=== PATIENT | male | born 2000 | race Caucasian/White ===

== ENCOUNTER 2022-10-22 14:45 | Emergency (ER) | payer OTHER, SELFPAY ==
[2022-10-22 14:50] VITALS: BP 133/77; PULSE 117; RESP 16; TEMP 36.8; O2SAT 97
--- NOTE | 2022-10-22 14:52 | ECG_ITS ---
Measurements Intervals Pease Rate: 111 P: 28 DE: 124 QRS: 20 QRSD: 88 T: 5 QT: 314 QTc: 427 Interpretive Statements SINUS TACHYCARDIA BORDERLINE T WAVE ABNORMALITY- INFERIOR LEADS ABNORMAL ECG NO PREVIOUS ECG AVAILABLE FOR COMPARISON Electronically Signed On 10-22-2022 20:04:16 CDT by Keven Leblanc D.O.
[2022-10-22 15:24] LABS: Basophils Absolute Auto 0.1 K/mm3 (0.0-0.1); Basophils Percent Auto 0.6 % (0.2-1.2); Eosinophils Absolute Auto 0.1 K/mm3 (0-0.3); Eosinophils Percent Auto 0.5 % (0-4.4); Hematocrit 41.7 % (42.0-52.0); Hemoglobin 13.9 g/dL (14.0-18.0); Immature Granulocyte Absolute 0.09 K/mm3 (0.00-0.031); Immature Granulocyte Percent A 0.9 % (0-0.5); Lymphocytes Absolute Auto 1.18 K/mm3 (0.9-3.2); Mean Corpuscular HGB Conc 33.3 g/dl (32-36); Mean Corpuscular Hemoglobin 27.9 pg (26-34); Mean Corpuscular Volume 83.7 fl (80-100); Mean Platelet Volume 9.2 fl (7.4-10.4); Monocytes Absolute Auto 0.8 K/mm3 (0.1-0.6); Monocytes Percent Auto 8.2 % (2.6-8.5); Neutrophils Absolute Auto 7.6 K/mm3 (1.3-6.7); Neutrophils Percent Auto 77.8 % (45.5-73.1); Platelet Count Result 297 k/mm3 (150-375); Red Blood Count 4.98 M/mm3 (4.6-6.20); Red Cell Distribution Width 13.5 % (11.5-14.5); White Blood Count 9.8 K/mm3 (4.5-10.0)
[2022-10-22 15:34] LABS: Alanine Aminotransferase 23 U/L (6-50); Albumin Level 4.6 g/dL (3.5-5.1); Alkaline Phosphatase 86 U/L (38-126); Anion Gap 10 mmol/L (8-16); Aspartate Amino Transferase 29 U/L (17-59); Bilirubin,Total 0.5 mg/dL (0.2-1.3); Blood Urea Nitrogen 12 mg/dL (9-20); Calcium 9.6 mg/dL (8.4-10.2); Carbon Dioxide 26 mmol/L (22-30); Chloride 103 mmol/L (98-107); Estimated CRCL calculation 166 ml/min; Estimated Glomerular Filt Rate > 60; Glucose 103 mg/dL (65-110); Sodium 139 mmol/L (137-145)
[2022-10-22 16:18] VITALS: RESP 16
[2022-10-22] MEDS: SODIUM CHLORIDE 0.9% IV 1,000 ML 999 ML IV CONT (17:25)
--- NOTE | 2022-10-22 17:28 | ED.GENADULT ---
HPI - General Adult General Chief complaint: Unspecified Stated complaint: chest pain, nausea, dizzy Time Seen by Provider: 10/22/22 17:14 Source: patient Mode of arrival: EMS Limitations: no limitations History of Present Illness HPI narrative: This is a 22-year-old male that presents to the emergency department for possible dehydration. 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 He started to feel nauseous, lightheaded, and sweaty. He also had a brief episode of chest pain. Does report he tried to keep up with drinking water. He was concerned for being dehydrated so he called EMS for evaluation. Denies any current chest pain, shortness of breath, or vomiting. Related Data Home Medications Medication Instructions Recorded Confirmed atorvastatin 40 mg tablet (Lipitor) 40 mg PO DAILY 10/14/22 10/14/22 sulfasalazine 500 mg tablet 1 g PO BID 10/14/22 10/14/22 Allergies Allergy/AdvReac Type Severity Reaction Status Date / Time No Known Allergies Allergy Verified 10/22/22 16:16 Review of Systems Review of Systems: CONSTITUTIONAL: Denies fever CARDIOVASCULAR: Reports chest pain RESPIRATORY: Denies dyspnea. GASTROINTESTINAL: Reports nausea. Denies vomiting NEUROLOGIC: Denies numbness, or weakness. All systems reviewed & are unremarkable except as noted in HPI and below PMFSH Past Medical History Medical History Bloating BRBPR (bright red blood per rectum) LUQ pain Obesity Psoriatic arthritis Vapes nicotine containing substance Social History Social History Smoking status: Current every day smoker Exam Narrative: GENERAL: Well-appearing, well-nourished, and in no acute distress. HEAD: Normocephalic, atraumatic. EYES: EOMI. ENT: Mucous membranes moist. Oropharynx without tonsillar hypertrophy exudate or other lesions. CHEST: Clear to auscultation. No respiratory distress. No wheezes rales or rhonchi HEART: Regular rate and rhythm. No murmur heard. Normal peripheral pulses. EXTREMITIES: Normal range of motion. No edema. SKIN: Warm, dry, no rash. NEURO: No focal deficits. Alert and oriented x3. PSYCH: Normal mood and affect Course Course Emergency Course: Patient updated on workup and agrees with plan of care Vital Signs Vital signs: Vital Signs Temperature 98.2 F 10/22/22 14:50 Pulse Rate 117 H 10/22/22 14:50 Respiratory Rate 16 10/22/22 14:50 Blood Pressure 133/77 10/22/22 14:50 Pulse Oximetry 97 10/22/22 14:50 Oxygen Delivery Room Air 10/22/22 14:50 Temperature 98.2 F 10/22/22 14:50 Pulse Rate 117 H 10/22/22 14:50 Respiratory Rate 16 10/22/22 16:18 Blood Pressure 133/77 10/22/22 14:50 Pulse Oximetry 97 10/22/22 14:50 Oxygen Delivery Room Air 10/22/22 14:50 Medical Decision Making MDM Narrative Medical decision making narrative: Patient presents to the 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 Reports feeling nauseous, lightheaded and sweaty. Hydrated in the ED with relief. Tachycardic upon arrival, this normalized after hydration. CBC and metabolic panel without concerning findings. CK is not elevated. EKG without concerning changes. Ulceration patient was updated on workup. Reports feeling much better and is ready for discharge. Instructed to continue to hydrate orally and follow up with primary provider Differential Diagnosis Differential Diagnosis: Dehydration, electrolyte derangement, arrhythmia Vital Signs Vital Signs: Vital Signs Temperature 98.2 F 10/22/22 14:50 Pulse Rate 117 H 10/22/22 14:50 Respiratory Rate 16 10/22/22 14:50 Blood Pressure 133/77 10/22/22 14:50 Pulse Oximetry 97 10/22/22 14:50 Oxygen Delivery Room Air 10/22/22 14:50 Temperature 98.2 F 10/22/22 14:50 Pulse Rate 117 H 10/22/22 14:50 Respiratory Rate 16 10/22/22 16:18 Blood Pressure 133/77 10/22/22 14:50 Pulse Oximetry 97 10/22/22 14:50 Oxygen Deli
[2022-10-22 17:40] LABS: Creatine Kinase 137 U/L (55-170)
[2022-10-22 17:54] LABS: Troponin I < 0.012 ng/mL (0.000-0.034)
[2022-10-22 18:07] VITALS: BP 128/84; PULSE 90; RESP 18; O2SAT 98
== END 2022-10-22 18:10 | disposition home or self-care (01) ==
PROVIDERS: Preventive Medicine Aerospace Medicine; Emergency Provider Physician Assistant
DX: E86.0 Dehydration (principal); L40.50 Arthropathic psoriasis, unspecified; E66.9 Obesity, unspecified; Z68.31 Body mass index [BMI] 31.0-31.9, adult; F17.290 Nicotine dependence, other tobacco product, uncomplicated; R00.0 Tachycardia, unspecified; R94.31 Abnormal electrocardiogram [ECG] [EKG]
CPT/HCPCS: 36415; 80053; 82550; 84484; 85025; 93005; 96360; 99284; J7030

== ENCOUNTER 2022-12-06 02:38 | Day surgery (SDC) | payer OTHER, SELFPAY ==
[2022-11-22 13:13] VITALS: BMI 31.6
--- NOTE | 2022-12-03 15:44 | PM.HPGS ---
History of Present Illness History of Present Illness Consent: Risks, benefits, and alternatives have been discussed and questions answered. Patient agrees to proceed with procedure. Chief complaint: hemorrhage of anus and rectum Narrative: Murtaza Light is a 22 year old male referred to us because of blood in his stools. ?He Also states that the end of May he began experiencing stomach pains and abdominal bloating.? He states the stomach pain that he is experiencing is mainly in the left upper quadrant and describes it as sharp and very quick and happens a few times per week.? currently taking famotidine 40 mg daily. Review of Systems Review of Systems: All systems reviewed & are unremarkable except as noted in HPI and below PMFSH Past Medical History Medical History Anxiety Bloating BRBPR (bright red blood per rectum) GERD (gastroesophageal reflux disease) Hyperlipidemia LUQ pain Obesity Osteoarthritis Psoriatic arthritis Vapes nicotine containing substance Social History Social History Years smoked: 7 Smoking status: Former smoker Tobacco type: cigarettes and e-cigarettes/vaping Alcohol intake: current Drinks per week: 1 Substance use type: does not use Living arrangements: with family Spiritual care concerns: No Meds Home Medications and Allergies Home Medications Medication Instructions Recorded Confirmed Type atorvastatin 40 mg tablet (Lipitor) 40 mg PO DAILY 10/14/22 11/23/22 History famotidine 40 mg tablet 40 mg PO DAILY #30 tabs 10/14/22 11/23/22 Rx sulfasalazine 500 mg tablet 1 g PO BID 10/14/22 11/23/22 History clobetasol 0.05 % scalp solution 1 applic topical BID 11/23/22 11/23/22 History desonide 0.05 % lotion 1 applic topical BID 11/23/22 11/23/22 History Allergies Allergy/AdvReac Type Severity Reaction Status Date / Time No Known Allergies Allergy Verified 12/06/22 11:29 Exam Const: General: alert Orientation/consciousness: patient oriented x3 Resp: Auscultation: clear to auscultation bilaterally Cardio: Rhythm: regular rhythm GI: GI Palp: Yes Soft to palpation and No Tenderness to palpation present (GI) Neuro: General: patient oriented x3 Assessment and Plan Assessment and plan (1) BRBPR (bright red blood per rectum): Code(s): K62.5 - Hemorrhage of anus and rectum Status: Acute Assessment and Plan: Colonoscopy with possible biopsy or polypectomy or cautery or injection of substances. (2) LUQ pain: Code(s): R10.12 - Left upper quadrant pain Status: Acute Assessment and Plan: EGD with possible biopsy or dilatation or cautery.
--- NOTE | 2022-12-06 08:10 | P.PNAN_ITS ---
Anes - Initial Pre Proc Eval Procedure: Operation Date: 12/06/22 12:30 Proposed Procedures p Esophagogastroduodenoscopy & Colonoscopy - Hermes Kennedy MD Date/Time: 12/06/22 08:10 Surgeon: Hermes Kennedy MD Pre Op Diagnosis: hemorrhage of anus and rectum Patient Data Age: 22 Gender: M Height: 1.78 m Weight: 100 kg Allergies Allergy/AdvReac Type Severity Reaction Status Date / Time No Known Allergies Allergy Verified 12/06/22 11:29 Home Medications Medication Instructions Recorded Confirmed Type atorvastatin 40 mg tablet (Lipitor) 40 mg PO DAILY 10/14/22 11/23/22 History famotidine 40 mg tablet 40 mg PO DAILY #30 tabs 10/14/22 11/23/22 Rx sulfasalazine 500 mg tablet 1 g PO BID 10/14/22 11/23/22 History clobetasol 0.05 % scalp solution 1 applic topical BID 11/23/22 11/23/22 History desonide 0.05 % lotion 1 applic topical BID 11/23/22 11/23/22 History Patient hx anesthesia problems: none Family hx anesthesia problems: none Results Review: All pre-operative results and documents have been reviewed as part of the pre- operative evaluation. PMFSH Past Medical History Medical History Anxiety Bloating BRBPR (bright red blood per rectum) GERD (gastroesophageal reflux disease) Hyperlipidemia LUQ pain Obesity Osteoarthritis Psoriatic arthritis Vapes nicotine containing substance Social History Social History Years smoked: 7 Smoking status: Former smoker Tobacco type: cigarettes and e-cigarettes/vaping Alcohol intake: current Drinks per week: 1 Substance use type: does not use Living arrangements: with family Spiritual care concerns: No Anes - Eval Final PreProcedure Day of Procedure 12/06/22 08:10 Patient weight: obese Heart: regular rate and rhythm Lungs: clear to auscultation Airway: Mallampati scale class II Neurological: alert and oriented Last oral intake: >/= 8 hours ASA classification: III Emergent: no Anesthetic plan: proceed Anesthesia type and monitoring: general GIVS and standard monitoring Results Review: All pre-operative results and documents have been reviewed as part of the pre- operative evaluation. Informed Consent: The patient's anesthetic plan and its attendant risks and benefits were discussed with the patient/family/POA. Questions were solicited and answers provided to the satisfaction of the patient/family/POA.
[2022-12-06 11:30] VITALS: BP 129/80; PULSE 113; RESP 18; TEMP 36.6; O2SAT 98
[2022-12-06] MEDS: LACTATED RINGERS 1,000 ML 150 ML IV CONT (11:37)
[2022-12-06] MEDS: SIMETHICONE ORAL SUSPENSION 20 MG/0.3 ML 30 ML BOTTLE 0.6 ML IRRIGATION (12:40)
--- NOTE | 2022-12-06 12:41 | SUR.OPER ---
EGD: [id number] COLON: Start 1238
[2022-12-06 12:51] VITALS: BP 112/56; PULSE 95; RESP 22; O2SAT 92
[2022-12-06 13:01] VITALS: BP 107/62; PULSE 89; RESP 20; O2SAT 92
[2022-12-06 13:11] VITALS: BP 116/76; PULSE 83; RESP 23; O2SAT 98
== END 2022-12-06 13:26 | disposition home or self-care (01) ==
PROVIDERS: Visit Provider Internal Medicine Gastroenterology
PROC: 0DJ08ZZ Inspection of Upper Intestinal Tract, Via Natural or Artificial Opening Endoscopic (ICD-10-PCS; CPT 43235; principal; 2022-12-06 12:30)
DX: K64.8 Other hemorrhoids (principal); K21.00 Gastro-esophageal reflux disease with esophagitis, without bleeding; E78.5 Hyperlipidemia, unspecified; L40.50 Arthropathic psoriasis, unspecified; E66.9 Obesity, unspecified; Z68.33 Body mass index [BMI] 33.0-33.9, adult; Z87.891 Personal history of nicotine dependence
CPT/HCPCS: 45378; 43239; 87081; 88305; J2405; J2704; J3010; J7120